=== PATIENT | male | born 1960 | race Hispanic/Latino ===

== ENCOUNTER → 2017-07-13 | Outpatient (CLI) | payer OTHER ==
[~2017-07-13] MED LIST: GASTROGRAFIN SOLUTION 30ML (Q9963) As Ordered; ISOVUE-370 76% 100ML VIAL (Q9967) As Ordered
== END ==
LOC: M RAD 10:08
DX: R97.20 Elevated prostate specific antigen [PSA] (principal)
CPT/HCPCS: Q9963